=== PATIENT | female | born 1980 | race Two or more races ===

== ENCOUNTER 2019-12-25 05:10 | Day surgery (SDC) | payer OTHER | END 2019-12-25 10:45 | disposition home or self-care (01) | LOC: AMB-ENDOS 05:10 | PROVIDERS: ATTEND Surgery | DX: D13.1 Benign neoplasm of stomach (principal); K44.9 Diaphragmatic hernia without obstruction or gangrene; Z20.828 Contact with and (suspected) exposure to other viral communicable diseases ==